=== PATIENT | female | born 1990 | race Caucasian/White ===

== ENCOUNTER 2017-02-20 14:05 | Outpatient (CLI) | payer BC, OTHER ==
[~2017-02-20] VITALS: Ht 165.1 cm; Wt 88.4 kg
[~2017-02-20 14:05] MED LIST: DOCU-159 PO; INSU100C SQ; LACTINEX PO; LANT3I SC; PEN500 PO
[2017-02-20 14:18] VITALS: BP 127/72; PULSE 92; RESP 16; Ht 165.1 cm; Wt 88.4 kg
--- NOTE | 2017-02-20 15:58 | PN ---
Date/Time of Note Date/Time of Note DATE: 02/20/17 TIME: 15:56 Outpatient Progress Note Chief Complaint Diabetes/UTI HPI Diabetes/no polydipsia polyuria hypoglycemia, patient blood sugar has been under control, patient was recently hospitalized with diabetic ketoacidosis, patient blood sugar fairly stable, UTI/patient had UTI, and pyelonephritis, patient was treated with antibiotic, no frequency urgency, no back pain, no fever chill, Review of Systems Const: No Fever, no chills, no Wt. loss, no Fatigue, normal appetite, no diaphoresis. Eyes: No pain, no discharge, no redness, no visual change, no foreign body. ENT: No pain, no bleeding, no congestion, no sore throat, no dysphagia, no discharge or rhinitis. Lymph: No adenopathy, no tender nodes, no lymphedema. Resp: No SOB, no cough, no sputum, no wheezing, no chest pain. CV: No chest pain, no palpitaions, no JOHNSON, no PND, no edema. GI: Normal appetite, no pain, no nausea, no vomiting, no diarrhea, no blood, no constipation. : No frequency, no urgency, no dysuria, no hematuria, no flank pain, no discharge, no bleeding. Musc: No bone/joint pain, no back pain, no neck pain, no knee pain, no restricted ROM. Skin: No rash, no skin lesions, no erythema, no laceration, no bruising, no pruritus. Neuro: No RIVERO, no dizziness, no syncope, no seizure, no focal-weakness. Endo: No polyuria, no polydypsia, no dry-skin, no temp-intolerance. Psych: No hallucinations, no depression, no anxiety, no suicidal ideation. Ext: No edema, no pain, no ulcer, no weakness. Physical Exam Vital Signs Date Time Temp Pulse Resp B/P Pulse Ox O2 Delivery O2 Flow Rate FiO2 02/20/17 14:18 98.0 92 16 127/72 97 Room Air General Appearance: A 26 year-old female who appears well-developed, well- nourished, in no acute distress. HEENT: Head normocephalic, atraumatic. Pupils equal, round, reactive to light and accommodate. Sclerae are no jaundice. Nasal turbinates pink without erythema or nasal discharge. Mucous membranes pink and moist without lesions. Oropharynx clear without any exudate or discharge. NECK: Supple. Trachea midline, No thyromegaly, No cervical lymphadenopathy, No mass, No carotid bruits, No JVD, Carotid pulses 2+ bilaterally. PULMONARY: Clear to auscultaion bilaterally, No retractions, Chest expansion symmetric bilaterally, no rales, no ronchi, no dulness on percussion. CARDIAC: Normal SI and S2, Regular rate and rythm, no murmur, gallop, or rub. GASTROINTESTINAL: Abdomen is soft, non-tender, Non Rigid, No distention, Positive bowel sounds x4 quadrants, Liver normal. SKIN: Warm, dry, no rash, no bruise, no echmosis. EXTREMITIES: Bilateral lower extremities normal, no edema, no phlabitus, pulse palpable, no contracture. MUSCULOSKELETAL: Spine Normal, Non-tender, Normal range of motion, No swelling, no deformity, no clubbing, or cyanosis, the patient has no edema to bilateral lower extremities, dorsalis pedis pulses palpable bilaterally. NEUROLOGIC: The patient is awake, alert, oriented, responding to yes/no questions appropriately, moving all extremities, cranial nerve intact, normal strenght, normal power, normal coordination, normal gait. Allergies Coded Allergies: No Known Allergy (Unverified , 01/06/15) PMH No change Social Hx No change Family Hx No change Assessment/Plan Impression Diabetes/UTI/pyelonephritis resolved Plan Patient education done about diabetes, patient advised to lose weight significantly, increase activity, Patient continues to present treatment, patient to follow with the primary care physician, If any symptoms or fever to call primary physician, check the blood sugar regularly and take the readings to primary care physician, Medications Home Meds Reported Medications Lactobacillus Acidophilus* (Lactinex*) 1 Tab Chew, 1 TAB PO BID, TAB 01/25/17 Insulin Lispro (Humalog) 100 Unit/1 Ml Cartridge, 10 UNIT SQ TID 01/25/17 Insulin Glargine* (Lantus*) 100 Unit/Ml Soln, 30 UNIT SC QHS, #1 VIAL 01/25/17 Discontinued Reported Medications Penicillin V Potassium* (Penicillin V K*) 500 Mg Tab, 500 MG PO Q6, TAB 01/25/17 Docusate Sodium* (Docusate Sodium*) 100 Mg Capsule, 100 MG PO DAILY, #30 CAP 01/25/17 NAVARRO LAWRENCE MD Feb 20, 2017 15:58
== END 2017-02-20 17:00 | disposition home or self-care (01) ==
LOC: DCC 14:05
PROVIDERS: ATTEND Internal Medicine
DX: E11.9 Type 2 diabetes mellitus without complications (principal); N39.0 Urinary tract infection, site not specified